=== PATIENT | female | born 1985 | race Caucasian/White ===

== ENCOUNTER 2018-09-04 14:32 | Outpatient (CLI) | payer BC ==
--- NOTE | 2018-09-04 15:48 | ULT ---
RENAL ULTRASOUND: 09/04/18 COMPARISON: None. HISTORY: Elevated renal laboratory values; chronic kidney disease; hypertension. TECHNIQUE: Multiplanar caban scale and color Doppler images were obtained in a renal ultrasound. FINDINGS: The kidneys are normal in echogenicity without hydronephrosis or calculi measuring 9.5 and 10.6 cm in length on the right and left, respectively. Limited visualization of the urinary bladder is unremarkable. IMPRESSION: Unremarkable renal ultrasound. POS: [facility]
== END 2018-09-04 14:33 | disposition home or self-care (01) ==
LOC: BICULT 14:32
PROVIDERS: ATTEND Internal Medicine Nephrology
DX: I12.9 Hypertensive chronic kidney disease with stage 1 through stage 4 chronic kidney disease, or unspecified chronic kidney disease (principal); N18.2 Chronic kidney disease, stage 2 (mild)
CPT/HCPCS: 76770

== ENCOUNTER 2022-06-23 10:59 | Outpatient (CLI) | payer BC | END 2022-06-23 11:00 | disposition home or self-care (01) | LOC: TBSIIMAG 10:59 | PROVIDERS: ATTEND Neurological Surgery | DX: M47.26 Other spondylosis with radiculopathy, lumbar region (principal); Z98.890 Other specified postprocedural states | CPT/HCPCS: 72100 ==

== ENCOUNTER 2022-08-10 12:32 | Outpatient (CLI) | payer BC | END 2022-08-10 12:33 | disposition home or self-care (01) | LOC: BICRAD 12:32 | PROVIDERS: ATTEND Neurological Surgery | DX: M54.50 Low back pain, unspecified (principal); M51.36 Other intervertebral disc degeneration, lumbar region; M47.816 Spondylosis without myelopathy or radiculopathy, lumbar region | CPT/HCPCS: 72100 ==

== ENCOUNTER 2023-08-14 14:56 | Outpatient (CLI) | payer BC | END 2023-08-14 14:57 | disposition home or self-care (01) | LOC: BICMAMMO 14:56 | PROVIDERS: ATTEND Family Medicine | DX: Z12.31 Encounter for screening mammogram for malignant neoplasm of breast (principal); Z98.890 Other specified postprocedural states | CPT/HCPCS: 77063; 77067 ==